=== PATIENT | female | born 1965 | race Caucasian/White ===

== ENCOUNTER → 2024-08-06 08:17 | Outpatient (REF) | payer OTHER, SELFPAY | LOC: RAD 08:17 | PROVIDERS: ATTENDING PHYSICIAN Internal Medicine Critical Care Medicine; FAMILY PHYSICIAN Student in an Organized Health Care Education/Training Program | DX: R91.8 Other nonspecific abnormal finding of lung field (principal) | CPT/HCPCS: 71250 ==

== ENCOUNTER → 2024-08-10 11:05 | Outpatient (REF) | payer OTHER, SELFPAY | LOC: WDC 11:05 | PROVIDERS: ATTENDING PHYSICIAN Obstetrics & Gynecology Gynecology | DX: Z12.31 Encounter for screening mammogram for malignant neoplasm of breast (principal) | CPT/HCPCS: 77063; 77067 ==

== ENCOUNTER → 2024-12-27 13:34 | Outpatient (REF) | payer OTHER, SELFPAY | LOC: HWRAD 13:34 | PROVIDERS: ATTENDING PHYSICIAN Student in an Organized Health Care Education/Training Program | DX: R51.9 Headache, unspecified (principal) | CPT/HCPCS: 70450 ==

== ENCOUNTER → 2025-02-06 08:08 | Outpatient (REF) | payer OTHER, SELFPAY | LOC: HWRAD 08:08 | PROVIDERS: ATTENDING PHYSICIAN Internal Medicine Critical Care Medicine; FAMILY PHYSICIAN Student in an Organized Health Care Education/Training Program | DX: R91.8 Other nonspecific abnormal finding of lung field (principal) | CPT/HCPCS: 71250 ==

== ENCOUNTER 2025-07-08 06:27 | Emergency (ER) | payer OTHER, SELFPAY ==
[2025-07-08] VITALS (7 sets, daily range): BP systolic 124–149; BP diastolic 77–91; BMI 28.1
--- NOTE | 2025-07-08 06:59 | ED.GENMED ---
History of Present Illness
General
Chief Complaint: Chest Pain
Source: patient and spouse
Time Seen by Provider: 07/08/25 06:37
History of Present Illness
History of Present Illness:
This patient is a 52-year-old female with complaints of pain in the left side of her chest radiating to L arm and neck. She says that she was doing a lot a lot of heavy lifting yesterday in the attic but she did not notice any discomfort yesterday.
However, she went to bed around 9 PM feeling well 11. Symptoms. By 12:30 AM she felt better and relaxed to sleep. She did wonder if her symptoms were related to gas stations that she took accidentally, as well as drink some hot water, burped and
then went back to sleep. She will report through a.m. to feed her cats and noted the symptoms at that time to continue assessment for sleep. She did notice that the pain seemed to get better if she laid on her right side. She does not notice a
change otherwise. She notes pain slightly worse with breath. She denies dyspnea, back pain, headache. She denies leg swelling, recent surgery, history of DVT in her or family members.
Past History
Past History
ED Past Medical History: HTN, Hypercholesterolemia and Other (Thyroid cancer, RA, lung nodules)
ED Past Surgical History: Other (Fibroid embolization, thyroid removal)
Social History
Tobacco: Former smoker
Alcohol: None
Drug: None
Personal:
Living: with family
Phy Exam
Physical Exam
Physical Exam:
GENERAL: Alert , in no apparent distress
EYE: pupils equal and reactive
NECK: Supple, no significant adenopathy.
ENT: o/p clr, mmm.
CARDIAC: Regular rate and rhythm .
LUNGS: Clear breath sounds bilaterally, no acute respiratory distress, no wheezes/rales/rhonchi
ABDOMEN: Soft, without focal tenderness, no r/g, no cvat
NEUROLOGICAL: Alert and oriented, no focal neuro deficits
SKIN: Warm and dry, skin intact.
MUSCULOSKELETAL: No edema, well perfused.
PSYCH: Normal and appropriate interaction.
Scores
Heart Score for Chest Pain Patients
STEMI patient?: Not applicable
Course
Orders/Labs/Results
Orders:
Orders
07/08/25 06:28
ECG [Electrocardiogram (*1)] Urgent
Reason for Study: Chest Pain
EKG- Treatment ONCE
07/08/25 06:39
Cardiac Monitoring- Treatment ONCE
IV Insert/Care/Rem.- Treatment PRN
Pulse Ox/spot Check [RESP] Urgent
Quantity: 1
Special Instructions: ON ROOM AIR
07/08/25 06:44
Complete Blood Count/With Diff Urgent
Comprehensive Metabolic Panel Urgent
Troponin I Urgent
07/08/25 06:55
Aspirin 325 mg PO NOW STA
07/08/25 07:51
D-Dimer Urgent
07/08/25 10:00
Troponin I Urgent
Abnormal Lab Results
07/08/25 07/08/25
06:44 07:51
Abs Immat Gran (auto) 0.1 H 10^3/uL
(0-0.05)
Immature Gran % 1.6 H %
(0-0.5)
D-Dimer 0.56 H ug/mlFEU
(0.00-0.50)
BUN 18 H mg/dl
(7-17)
Glucose 108 H mg/dl
(70-99)
ALT 43 H U/L
(0-35)
Total Protein 8.5 H g/dl
(6.3-8.2)
Albumin 5.2 H g/dl
(3.5-5.0)
07/08/25 06:44
07/08/25 06:44
Vital Signs
Initial and Last Documented VS:
Initial Vital Signs
BP
149/91
07/08/25 06:32
Last Documented Vital Signs
Temp Pulse Resp BP Pulse Ox
98.3 F 88 18 135/84 99
07/08/25 12:41 07/08/25 12:41 07/08/25 12:41 07/08/25 12:41 07/08/25 12:41
*Pulse Oximetry
SaO2: 100
Oxygen Mode of Delivery: Room air
Patient hypoxic: no
*Critical Care Note
Total Time (30-74mins, 75-104mins- exclusive of procedures): Not Applicable
Update Note
Update Note:
Patient presents to the Emergency Department with ____cp
Number and Complexity of Problems Addressed at the Encounter
� Chronic conditions affecting care:
� Acute Exacerbation and/or Progression of Chronic Illness:
� Differential Diagnosis includes:but not limited to acs, pe, msk pain, pericarditis, etc etc
Amount and/or Complexity of Data to be Reviewed and Analyzed
� I performed an independent evaluation of and my interpretation is:
EKG:read by me, nsr with pvc's, no acute ischemia (unhcanged from prior)
CT:
Xrays:
Laboratory Studies:AGE ADJUSTED, D DIMER WNL, troponin x 2 unremarkable
Other:
� Review of other/old records reveals:
� Clinical information was obtained by an independent historian: who is bedside
� Prescriptions/Medications Considered but not given:
� Further testing considered but not performed:
Risk of Complications and/or Morbidity or Mortality of Patient Management
� Social determinants of health affecting care:
� Discussion with other providers (PCP, Hospitalists, Consultants, etc):
� Escalation of care including admission/observation vs risk of discharge considered: 11:26 AM workup here generally unremarkable, highly doubt PE given unremarkable D-dimer, minimal to no risk factors. Vital signs stable. ECG
without acute ischemic changes. Pain not sudden onset or ripping, not radiating to the back, highly doubt dissection. Discussed with patient portance of follow-up and reasons return to ER.
ED Attending Note
-
Portions of this chart may have been created with voice recognition software.� Occasional wrong word or��sound alike� substitutions may have occurred due to the inherent limitations of voice recognition software.
Discharge Plan
Departure
Patient Disposition: Home (Routine Discharge)
Date of Disposition: 07/08/25
Time of Disposition: 11:24
Patient with high blood pressure during this ER visit?: Yes
Condition: Good
Discharge Problem:
Chest pain
Instructions: Chest Pain PCP Follow Up, BLOOD PRESSURE
Prescriptions:
No Action
cetirizine [Zyrtec] 10 MG tablet
5 mg PO DAILY
omeprazole magnesium [Prilosec OTC] 20 MG tablet,delayed release (DR/EC)
20 mg PO DAILY
multivitamin [Daily Vitamin] 1 EACH tablet
1 ea PO DAILY
atorvastatin 10 MG tablet
10 mg PO QPM
amlodipine 5 MG tablet
5 mg PO DAILY
levothyroxine 100 MCG tablet
100 mcg PO DAILY
fluticasone propionate 1 SPRAY spray,suspension
2 spray intranasal BID
fish oil-dha-epa 1 EACH capsule
2 ea PO DAILY
cholecalciferol (vitamin D3) [Vitamin D3] 2,000 UNIT capsule
2,000 unit PO DAILY
Referrals:
Emiliano Hammond DO [Family Provider, Family Practice] - Follow up in 2-3 days
Activity Restrictions/Additional Instructions:
IF YOU DEVELOP INCREASING/NEW/PERSISTENT PAIN, ANY TROUBLE BREATHING, SWELLING, VOMITING, OR OTHER WORRISOME SIGNS, GO TO THE ER IMMEDIATELY!
Interventions
Interventions:
*Risk Screen - Suicide Last Done: 07/08/25 06:37
*General Assessment Last Done: 07/08/25 06:37
*Neglect/Abuse Screening Last Done: 07/08/25 06:37
*ED- Fall Risk Assessment Last Done: 07/08/25 06:37
*ED COVID-19 Vaccine History Last Done: 07/08/25 06:37
*Nursing Disposition Last Done: 07/08/25 12:41
ED- Cardiac Assessment Last Done: 07/08/25 07:05
Discharge Date and Time
Discharge Date/Time: 07/08/25 12:30
Print Language: UKRAINIAN
[2025-07-08 07:04] LABS: Hematocrit 39.6 % (37.0-47.0); Hemoglobin 13.5 g/dL (12.0-16.0); Mean Corp Hgb Conc. 34.1 g/dL (33.0-37.0); Mean Corpuscular Volume 82.7 fL (81.0-99.0); Nucleated Red Blood Cells % 0 %; Platelet Count 215 10^3/uL (130-400); Red Cell Dist. Width 12.8 % (11.5-14.5)
[2025-07-08] MEDS: ASPIRIN 325 MG PO (07:05)
[2025-07-08 07:26] LABS: ALT (SGPT) 43 U/L (0-35); AST (SGOT) 32 U/L (14-36); Albumin 5.2 g/dl (3.5-5.0); Alkaline Phosphatase 107 U/L (38-126); Blood Urea Nitrogen 18 mg/dl (7-17); Calcium 9.9 mg/dl (8.4-10.2); Carbon Dioxide 28 mmol/L (22-30); Chloride 103 mmol/L (98-107); Estimated Creatinine Clearance 62 ml/min; Glucose 108 mg/dl (70-99); Potassium 3.9 mmol/L (3.5-5.1); Sodium 142 mmol/L (135-145); Total Protein 8.5 g/dl (6.3-8.2); eGFR > 60.00
[2025-07-08 07:39] LABS: Troponin I < 0.012 ng/ml
[2025-07-08 08:20] LABS: D-Dimer 0.56 ug/mlFEU (0.00-0.50)
[2025-07-08 10:58] LABS: Troponin I < 0.012 ng/ml
--- NOTE | 2025-07-08 12:39 | EDRN ---
Reviewed discharge instructions with patient. Verbalized understanding. Ambulated with steady gait to the lobby.
== END 2025-07-08 12:30 | disposition home or self-care (01) ==
LOC: EMR 06:27
PROVIDERS: EMERGENCY PHYSICIAN Emergency Medicine; FAMILY PHYSICIAN Student in an Organized Health Care Education/Training Program
DX: R07.9 Chest pain, unspecified (principal); I10 Essential (primary) hypertension; E78.00 Pure hypercholesterolemia, unspecified; M06.9 Rheumatoid arthritis, unspecified; Z87.891 Personal history of nicotine dependence; Z85.850 Personal history of malignant neoplasm of thyroid
CPT/HCPCS: 99284; 80053; 84484; 85025; 85379; 93005

== ENCOUNTER 2025-07-11 19:58 | Emergency (ER) | payer OTHER, SELFPAY ==
[2025-07-11 20:07] VITALS: BP 142/97
[2025-07-11 20:26] LABS: Hematocrit 35.8 % (37.0-47.0); Hemoglobin 12.4 g/dL (12.0-16.0); Mean Corp Hgb Conc. 34.6 g/dL (33.0-37.0); Mean Corpuscular Volume 83.8 fL (81.0-99.0); Nucleated Red Blood Cells % 0 %; Platelet Count 227 10^3/uL (130-400); Red Cell Dist. Width 13.1 % (11.5-14.5)
[2025-07-11 20:39] LABS: ALT (SGPT) 32 U/L (0-35); AST (SGOT) 27 U/L (14-36); Albumin 4.5 g/dl (3.5-5.0); Alkaline Phosphatase 96 U/L (38-126); Blood Urea Nitrogen 17 mg/dl (7-17); Calcium 9.3 mg/dl (8.4-10.2); Carbon Dioxide 27 mmol/L (22-30); Chloride 103 mmol/L (98-107); Glucose 111 mg/dl (70-99); Potassium 3.9 mmol/L (3.5-5.1); Sodium 140 mmol/L (135-145); Total Protein 7.3 g/dl (6.3-8.2); eGFR > 60.00
[2025-07-11 20:49] LABS: Troponin I < 0.012 ng/ml
[2025-07-11 22:58] VITALS: BP 138/92
[2025-07-11 23:00] VITALS: BP 132/84
--- NOTE | 2025-07-11 23:33 | ED.GENMED ---
History of Present Illness
General
Chief Complaint: Chest Pain
Time Seen by Provider: 07/11/25 22:54
History of Present Illness
History of Present Illness:
60-year-old female with history of rheumatoid arthritis, hypertension presenting to the emergency department for left-sided chest pain. Patient reports symptoms started when she woke up from sleep on Tuesday, 5 days ago. Pain is on the left side of
the chest, worse with any type of movement or deep inspiration. Denies any radiation of pain. Denies known cardiac history. Patient was seen in the hospital the following day with unremarkable workup. Denies cough or fever. Denies additional
acute medical complaints.
Past History
Past History
ED Past Medical History: HTN, Hypercholesterolemia and Other (Thyroid cancer, RA, lung nodules)
ED Past Surgical History: Other (Fibroid embolization, thyroid removal)
Social History
Tobacco: Former smoker
Alcohol: None
Drug: None
Personal:
Living: with family
Phy Exam
Physical Exam
Physical Exam:
General: Well-appearing, no clinical signs of dehydration, nontoxic and in no acute distress
HEENT: protecting airway
Neck: appears supple
CV: Normal heart rate, regular rhythm. Focal tenderness to the left chest wall without crepitus
Resp: No accessory muscle use, no increased work of breathing, lungs clear to auscultation bilaterally
Abd: no distension
Extremities: No deformities, no swelling, no erythema, pulses and sensation intact
Neuro: alert, no focal neurologic deficit
: deferred
Rectal: deferred
Psych: Normal affect
Skin: Intact
Scores
Heart Score for Chest Pain Patients
STEMI patient?: No
History: Slightly or Non-Suspicious
ECG: Normal
Age: >45 - <65 years
Risk Factors: 1 or 2 Risk Factors
Troponin: </= Normal Limit
Heart Score for Chest Pain Patients: 2
Heart Score Risk: 2.5% MACE over next 6 weeks
Course
Orders/Labs/Results
Orders:
Orders
07/11/25 20:00
Electrocardiogram (*1) Urgent
Reason for Study: Chest Pain
Cardiac Monitoring- Treatment ONCE
EKG- Treatment ONCE
IV Insert/Care/Rem.- Treatment PRN
O2 Therapy [RESP] Urgent
Titrate/Wean O2 to maintain O2 sat greater than (%): 90
Special Instructions: Maintain sats >/=90%
Pulse Ox/spot Check [RESP] Urgent
Quantity: 1
Special Instructions: ON ROOM AIR
07/11/25 20:11
Complete Blood Count/With Diff Urgent
Comprehensive Metabolic Panel Urgent
Troponin I Urgent
07/11/25 23:17
Acetaminophen [Tylenol] 1,000 mg PO NOW STA
CR Chest - 2 Views Urgent
Comment:
Reason For Exam: L-sided pain, SOB
07/12/25 00:37
D-Dimer Urgent
Comment: Called to [id number] at 07/12/25 00:29 by Natalie
07/12/25 01:15
CT Chest PE Study Urgent
Comment:
Reason For Exam: L-chest pain, positive dimer
Abnormal Lab Results
07/11/25 07/12/25
20:11 00:37
Hct 35.8 L %
(37.0-47.0)
MPV 10.6 H fL
(7.4-10.4)
D-Dimer 0.98 H ug/mlFEU
(0.00-0.50)
Glucose 111 H mg/dl
(70-99)
07/11/25 20:11
07/11/25 20:11
Vital Signs
Initial and Last Documented VS:
Initial Vital Signs
Temp Pulse Resp BP Pulse Ox
99.3 F 111 16 142/97 98
07/11/25 20:07 07/11/25 20:07 07/11/25 20:07 07/11/25 20:07 07/11/25 20:07
Last Documented Vital Signs
Temp Pulse Resp BP Pulse Ox
99.3 F 87 22 142/97 95
07/11/25 20:07 07/11/25 22:45 07/11/25 22:45 07/11/25 20:07 07/11/25 23:38
MDM/Problems Addressed
MDM/Problems Addressed:
60-year-old female with history of hypertension hyperlipidemia presenting to the emergency department for left-sided chest pain. Vital signs are significant for mild tachycardia, however resolved
On exam patient is resting comfortably, no acute distress. Patient's pain is reproducible. With ultimate suspicion for musculoskeletal component, muscle strain. Lower suspicion for ACS, given symptom quality, nonischemic EKG. Plan for screening
laboratory analysis including troponin. Will also add D-dimer. Lower suspicion, however note given deep aspiration. Will obtain chest x-ray to ensure no pneumothorax. Tylenol administered pain
01:15 - Patient's chest x-ray shows possible left lower lobe pneumonia. Patient does note that she was sick 2 weeks ago, however cough overall improved. Dimer is increasing. For this reason we will obtain CT chest for further assessment for
complete rule out of PE
CT shows evidence of pneumonia, no evidence of PE. At this time feel stable for discharge with outpatient antibiotic therapy. Will start patient on doxycycline. Return precautions discussed and patient verbalized understanding
*Pulse Oximetry
SaO2: 95
Oxygen Mode of Delivery: Room air
Patient hypoxic: no
*EKG
Interpreted by ED Provider?: Yes
EKG Intrepretation Date: 07/11/25
EKG Intrepretation Time: 23:40
Interpretation: normal
Comparison EKG: no changes (07/08/25)
Heart Rate: 102
Rate: tachycardiac
Rhythm: sinus
[place]: normal axis
Interval: normal interval
QRS Pattern: normal QRS
Ischemia: no ischemia
*Critical Care Note
Total Time (30-74mins, 75-104mins- exclusive of procedures): Not Applicable
ED Attending Note
-
Portions of this chart may have been created with voice recognition software.� Occasional wrong word or��sound alike� substitutions may have occurred due to the inherent limitations of voice recognition software.
Discharge Plan
Departure
Prescriptions:
No Action
omeprazole magnesium [Prilosec OTC] 20 MG tablet,delayed release (DR/EC)
20 mg PO DAILY
multivitamin [Daily Vitamin] 1 EACH tablet
1 ea PO DAILY
atorvastatin 10 MG tablet
10 mg PO QPM
amlodipine 5 MG tablet
5 mg PO DAILY
levothyroxine 100 MCG tablet
100 mcg PO DAILY
fish oil-dha-epa 1 EACH capsule
2 ea PO DAILY
cholecalciferol (vitamin D3) [Vitamin D3] 2,000 UNIT capsule
2,000 unit PO DAILY
hydroxychloroquine 300 mg Tablet
300 mg PO BID
losartan 15 mg tablet
15 mg PO DAILY
Referrals:
Emiliano Hammond DO [Family Provider, Family Practice]
Interventions
Interventions:
*Risk Screen - Suicide Last Done: 07/11/25 20:07
*General Assessment Last Done: 07/11/25 23:47
*Neglect/Abuse Screening Last Done: 07/11/25 20:07
*ED- Fall Risk Assessment Last Done: 07/11/25 23:48
*ED COVID-19 Vaccine History Last Done: 07/11/25 23:48
ED- Cardiac Assessment Last Done: 07/11/25 22:39
Discharge Date and Time
Print Language: SERBIAN
[2025-07-11] MEDS: TYLENOL 1000 MG PO (23:44)
[2025-07-11 23:46] VITALS: BMI 27.1
[2025-07-12 01:08] LABS: D-Dimer 0.98 ug/mlFEU (0.00-0.50)
[2025-07-12 03:55] VITALS: BP 132/87
== END 2025-07-12 03:55 | disposition home or self-care (01) ==
LOC: EMR 19:58
PROVIDERS: Emergency Medicine; EMERGENCY PHYSICIAN Student in an Organized Health Care Education/Training Program; FAMILY PHYSICIAN Student in an Organized Health Care Education/Training Program
DX: J18.9 Pneumonia, unspecified organism (principal); R00.0 Tachycardia, unspecified; I10 Essential (primary) hypertension; E78.00 Pure hypercholesterolemia, unspecified; M06.9 Rheumatoid arthritis, unspecified; Z87.891 Personal history of nicotine dependence; Z85.850 Personal history of malignant neoplasm of thyroid
CPT/HCPCS: 99284; 71046; 71275; 80053; 84484; 85025; 85379; 93005; Q9967

== ENCOUNTER 2025-07-12 17:27 | Emergency (ER) | payer OTHER, SELFPAY ==
[2025-07-12 17:41] VITALS: BP 172/86
--- NOTE | 2025-07-12 18:37 | ED.GENMED ---
History of Present Illness
<Ginny Hernandez MD - Last Filed: 07/12/25 19:49>
General
Chief Complaint: Nose Bleed
Source: patient and spouse
Time Seen by Provider: 07/12/25 19:11
History of Present Illness
History of Present Illness:
60-year-old female presents emergency department complaints of nosebleed that started approximately 4 PM today. She states that she takes 2 medications that increase her risk of nosebleeds and she has had this twice in the past. However, she
states that she had difficulty getting control of this nosebleed which prompted her visit to an urgent care. A small amount of packing/material was placed in her right nare and she was referred to the emergency department. Since her urgent care
visit and referral to the ER, the bleeding has stopped. She denies associated symptoms such as dizziness, bleeding elsewhere, chest pain, palpitations, dyspnea, etc. Bleeding is exclusively from the right nare. She denies recent trauma. Of note,
patient was just discharged from emergency department after diagnosis of pneumonia.
Past History
<Negro Mike MD - Last Filed: >
Past History
ED Past Medical History: HTN, Hypercholesterolemia and Other (Thyroid cancer, RA, lung nodules)
ED Past Surgical History: Other (Fibroid embolization, thyroid removal)
Social History
Tobacco: Former smoker
Alcohol: None
Drug: None
Personal:
Living: with family
Phy Exam
<Ginny Hernandez MD - Last Filed: 07/12/25 19:49>
Physical Exam
Physical Exam:
GENERAL: Alert , in no apparent distress
EYE: pupils equal and reactive
NECK: Supple, no significant adenopathy.
ENT: o/p clr, mmm, Packing noted at right nare without active bleed.
CARDIAC: Regular rate and rhythm .
LUNGS: Clear breath sounds bilaterally, no acute respiratory distress, no wheezes/rales/rhonchi
ABDOMEN: Soft, without focal tenderness, no r/g, no cvat
NEUROLOGICAL: Alert and oriented, no focal neuro deficits
SKIN: Warm and dry, skin intact.
MUSCULOSKELETAL: No edema, well perfused.
PSYCH: Normal and appropriate interaction.
Course
<Ginny Hernandez MD - Last Filed: 07/12/25 19:49>
Vital Signs
Initial and Last Documented VS:
Initial Vital Signs
Temp Pulse Resp BP Pulse Ox
98.0 F 110 18 172/86 98
07/12/25 17:41 07/12/25 17:41 07/12/25 17:41 07/12/25 17:41 07/12/25 17:41
Last Documented Vital Signs
Temp Pulse Resp BP Pulse Ox
98.0 F 110 18 138/92 98
07/12/25 17:41 07/12/25 17:41 07/12/25 19:16 07/12/25 19:16 07/12/25 19:22
<Negro Mike MD - Last Filed: >
Vital Signs
Initial and Last Documented VS:
Initial Vital Signs
Temp Pulse Resp BP Pulse Ox
98.0 F 110 18 172/86 98
07/12/25 17:41 07/12/25 17:41 07/12/25 17:41 07/12/25 17:41 07/12/25 17:41
Last Documented Vital Signs
Temp Pulse Resp BP Pulse Ox
98.0 F 110 18 138/92 98
07/12/25 17:41 07/12/25 17:41 07/12/25 19:16 07/12/25 19:16 07/12/25 19:22
Procedures
<Ginny Hernandez MD - Last Filed: 07/12/25 19:49>
Nosebleed
Drug treatment: Lidocaine and Epinephrine
Treatment: local pressure applied and Silver nitrate cautery
Post treatment bleeding: none- good control
<Ginny Hernandez MD - Last Filed: 07/12/25 19:49>
*Pulse Oximetry
Patient hypoxic: no
*Critical Care Note
Total Time (30-74mins, 75-104mins- exclusive of procedures): Not Applicable
<Negro Mike MD - Last Filed: >
*Pulse Oximetry
SaO2: 98
Oxygen Mode of Delivery: Room air
<Ginny Hernandez MD - Last Filed: 07/12/25 19:49>
Update Note
Update Note:
Patient presents to the Emergency Department with ___Epistaxis
Number and Complexity of Problems Addressed at the Encounter
� Chronic conditions affecting care:
� Acute Exacerbation and/or Progression of Chronic Illness:
� Differential Diagnosis includes:But not limited to bleeding disorder, medication effect, idiopathic nosebleed, etc. etc.
Amount and/or Complexity of Data to be Reviewed and Analyzed
� I performed an independent evaluation of and my interpretation is:
EKG:
CT:
Xrays:
Laboratory Studies:
Other:
� Review of other/old records reveals:
� Clinical information was obtained by an independent historian:
� Prescriptions/Medications Considered but not given:
� Further testing considered but not performed:
Risk of Complications and/or Morbidity or Mortality of Patient Management
� Social determinants of health affecting care:
� Discussion with other providers (PCP, Hospitalists, Consultants, etc):
� Escalation of care including admission/observation vs risk of discharge considered:This 7:46 PM after local epi lidocaine impregnated cotton packed for approximately 15 minutes this was removed and anterior septum visualized,
small area as source of oozing noted, this was cauterized by me. I do note that there are other areas that have been successfully cauterized, patient states this was done by the urgent care. No active bleeding patient without symptoms. Patient
will be observed for approximately 30 minutes to assure no further rebleeding. Advised patient instructions regarding if she was to have further bleeding upon discharge and the importance of ENT follow-up.
ED Attending Note
<Negro Mike MD - Last Filed: >
-
Portions of this chart may have been created with voice recognition software.� Occasional wrong word or��sound alike� substitutions may have occurred due to the inherent limitations of voice recognition software.
Discharge Plan
Departure
Patient Disposition: Home (Routine Discharge)
Date of Disposition: 07/12/25
Time of Disposition: 19:48
Patient with high blood pressure during this ER visit?: Yes
Condition: Good
Discharge Problem:
Epistaxis
Instructions: Nosebleeds (DC), BLOOD PRESSURE
Prescriptions:
No Action
omeprazole magnesium [Prilosec OTC] 20 MG tablet,delayed release (DR/EC)
20 mg PO DAILY
multivitamin [Daily Vitamin] 1 EACH tablet
1 ea PO DAILY
atorvastatin 10 MG tablet
10 mg PO QPM
amlodipine 5 MG tablet
5 mg PO DAILY
levothyroxine 100 MCG tablet
100 mcg PO DAILY
fish oil-dha-epa 1 EACH capsule
2 ea PO DAILY
cholecalciferol (vitamin D3) [Vitamin D3] 2,000 UNIT capsule
2,000 unit PO DAILY
hydroxychloroquine 300 mg Tablet
300 mg PO BID
losartan 15 mg tablet
15 mg PO DAILY
doxycycline hyclate 100 mg capsule
100 mg PO BID 7 Days Qty: 14 0RF
Referrals:
Emiliano Hammond DO [Family Provider, Family Practice]
Iesha Jhaveri MD [Active, Otology] - Next open appointment
Activity Restrictions/Additional Instructions:
IF YOU DEVELOP RECURRENT BLEEDING THAT DOES NOT STOP AT HOME, BLEEDING ELSEWHERE, DIZZINESS, CHEST PAIN, TROUBLE BREATHING, OR OTHER WORRISOME SIGNS, PLEASE RETURN TO THE ER IMMEDIATELY!
Interventions
Interventions:
*Risk Screen - Suicide Last Done: 07/12/25 17:41
*Neglect/Abuse Screening Last Done: 07/12/25 17:43
*ED- Fall Risk Assessment Last Done: 07/12/25 19:06
*ED COVID-19 Vaccine History Last Done: 07/12/25 19:06
ED-EENT Assessment Last Done: 07/12/25 19:17
Discharge Date and Time
Print Language: SWEDISH
[2025-07-12 19:05] VITALS: BMI 27.1
[2025-07-12 19:16] VITALS: BP 138/92
== END 2025-07-12 20:29 | disposition home or self-care (01) ==
LOC: EMR 17:27
PROVIDERS: EMERGENCY PHYSICIAN Emergency Medicine; FAMILY PHYSICIAN Student in an Organized Health Care Education/Training Program
DX: R04.0 Epistaxis (principal); I10 Essential (primary) hypertension; E78.00 Pure hypercholesterolemia, unspecified; M06.9 Rheumatoid arthritis, unspecified; Z85.850 Personal history of malignant neoplasm of thyroid; Z87.891 Personal history of nicotine dependence
CPT/HCPCS: 99282; 30901

== ENCOUNTER → 2025-08-15 08:15 | Outpatient (REF) | payer OTHER, SELFPAY | LOC: WDC 08:15 | PROVIDERS: ATTENDING PHYSICIAN Obstetrics & Gynecology Gynecology; FAMILY PHYSICIAN Student in an Organized Health Care Education/Training Program | DX: Z12.31 Encounter for screening mammogram for malignant neoplasm of breast (principal) | CPT/HCPCS: 77063; 77067 ==

== ENCOUNTER → 2025-09-06 08:06 | Outpatient (REF) | payer OTHER, SELFPAY | LOC: REG 08:06 | PROVIDERS: ATTENDING PHYSICIAN Student in an Organized Health Care Education/Training Program | DX: M19.041 Primary osteoarthritis, right hand (principal); Z87.39 Personal history of other diseases of the musculoskeletal system and connective tissue | CPT/HCPCS: 73130 ==